=== PATIENT | female | born 1985 | race Hispanic/Latino ===

== ENCOUNTER 2023-03-19 06:44 | Day surgery (SDC) | payer BC ==
[2023-03-16 11:15] VITALS: BP 95/55; PULSE 62; RESP 14
[2023-03-16 11:21] LABS: BASOPHILS # (AUTO) 0.04 K/uL (0.00-0.20); BASOPHILS % (AUTO) 0.6 % (0.0-5.0); EOSINOPHILS # (AUTO) 0.19 K/uL (0.00-0.70); EOSINOPHILS % (AUTO) 2.8 % (0.0-8.0); HEMATOCRIT 38.1 % (36-48); IMMATURE GRANULOCYTE ABSOLUTE 0.02 K/uL (0-1); LYMPHOCYTES # (AUTO) 1.5 K/uL (1.0-4.8); LYMPHOCYTES % (AUTO) 21.9 % (21.0-51.0); MEAN CORPUSCULAR HEMOGLOBIN 28.3 pg (27.0-33.0); MEAN CORPUSCULAR VOLUME 88.4 fL (79-99); MONOCYTES # (AUTO) 0.4 K/uL (0.1-1.0); NEUTROPHILS # (AUTO) 4.6 K/uL (1.8-7.7); NEUTROPHILS % (AUTO) 68.4 % (40.0-77.0); PLATELET COUNT (AUTO) 328 K/uL (130-400); RED BLOOD CELL COUNT(AUTO) 4.31 MIL/uL (4.00-5.50); WHITE BLOOD COUNT (AUTO) 6.8 K/uL (4.8-10.8)
[2023-03-16 11:36] LABS: ALBUMIN 3.7 g/dL (3.5-5.0); BILIRUBIN,TOTAL 0.3 mg/dL (0.2-1.0); CREATININE 0.7 mg/dL (0.5-1.5); POTASSIUM 3.8 mmol/L (3.5-5.1); TOTAL PROTEIN, SERUM 7.6 g/dL (6.0-8.3)
[2023-03-19] VITALS (17 sets, daily range): BP systolic 89–109; BP diastolic 46–69; PULSE 52–79; RESP 14–18
[~2023-03-19] VITALS: Ht 162.6 cm; Wt 74.8 kg
[2023-03-19] MEDS ORDERED: CEFAZOLIN SODIUM 2 GM VIAL ONE (07:13)
[2023-03-19] MEDS ORDERED: LACTATED RINGERS 1000ML 1,000 ML IV ONE (07:13)
[2023-03-19] MEDS ORDERED: BUPIVACAINE/PF 0.5% 30ML VIAL ONE (07:50)
[2023-03-19] MEDS ORDERED: CEFAZOLIN SODIUM 1 GM VIAL ONE (07:51)
[2023-03-19] MEDS ORDERED: LIDOCAINE 1%-EPI 1:100,000 20 ML VIAL ONE (07:51)
[2023-03-19] MEDS ORDERED: IOHEXOL-350 50ML VIAL IV ONE (07:52)
[2023-03-19] MEDS ORDERED: HYDROMORPHONE 1 MG INJ ONE (09:22)
[2023-03-19] MEDS ORDERED: FAMOTIDINE 20MG VIAL IV ONE (09:23)
[2023-03-19] MEDS ORDERED: ROCURONIUM 10MG/1ML SYR 10 MG/ML ML ONE (09:29)
[2023-03-19] MEDS ORDERED: LIDOCAINE PF 100MG/5ML (2%) SYRINGE 5ML ONE (09:29)
[2023-03-19] MEDS ORDERED: PROPOFOL 10 MG/ML 20ML VIAL IV ONE (09:29)
[2023-03-19] MEDS ORDERED: FENTANYL CITRATE PF 50 MCG/1 ML 2ML VIAL ONE (09:29)
[2023-03-19] MEDS ORDERED: MIDAZOLAM HCL 1 MG/ML 2ML VIAL ONE (10:17)
[2023-03-19] MEDS ORDERED: GLYCOPYRROLATE 1 MG/5 ML SYRINGE ONE (10:25)
[2023-03-19] MEDS ORDERED: ONDANSETRON 4MG INJ ONE ×2 (10:43→12:33)
[2023-03-19] MEDS ORDERED: NEOSTIGMINE 5MG/5ML SYR IV ONE (11:43)
[2023-03-19] MEDS ORDERED: MEPERIDINE-PF 25 MG/ML SYG ONE (12:34)
== END 2023-03-19 14:00 | disposition home or self-care (01) ==
LOC: DAH 06:44
PROVIDERS: ATTEND Surgery
DX: K81.1 Chronic cholecystitis (principal); K21.9 Gastro-esophageal reflux disease without esophagitis; Z79.01 Long term (current) use of anticoagulants; Z79.899 Other long term (current) drug therapy; Z87.891 Personal history of nicotine dependence; Z80.0 Family history of malignant neoplasm of digestive organs
CPT/HCPCS: 80053; 84703; 85025; 86850 ×2; 86900 ×2; 86901 ×2; 36415 ×2; 47563; 88304; 74300; A6260; A4663; J7030; C1758; J7120; J3490 ×3; J3010; J1170; J2710; J2001; J2250; J2704; J2405 ×2; J0665; J2175; Q9967; J0690; A4649 ×2; A4930; A4215; A4223; A4222; A4221; A4600; G0168